=== PATIENT | female | born 1975 | race Caucasian/White ===

== ENCOUNTER → 2017-11-13 13:32 | Outpatient (CLI) | payer OTHER, SELFPAY ==
[2017-11-21 12:06] LABS: HPV Reflexed? NOT INDICATED
== END ==
PROVIDERS: Family Provider Family Medicine; PCP Family Medicine; Visit Provider Obstetrics & Gynecology
DX: Z12.4 Encounter for screening for malignant neoplasm of cervix (principal)
CPT/HCPCS: 88175; G0145

== ENCOUNTER → 2018-12-01 16:11 | Outpatient (CLI) | payer BC, SELFPAY | PROVIDERS: Visit Provider Obstetrics & Gynecology | DX: Z12.4 Encounter for screening for malignant neoplasm of cervix (principal) ==

== ENCOUNTER → 2020-01-10 | Outpatient (CLI) | payer BC, SELFPAY ==
[2020-01-14 15:26] LABS: HPV Reflexed? NOT INDICATED
== END | disposition home or self-care (01) ==
LOC: WOBLAB 11:36
PROVIDERS: Visit Provider Student in an Organized Health Care Education/Training Program
DX: Z12.4 Encounter for screening for malignant neoplasm of cervix (principal)
CPT/HCPCS: 88175; G0145

== ENCOUNTER 2021-05-18 10:28 | Outpatient (CLI) | payer BC, SELFPAY ==
--- NOTE | 2021-05-18 10:32 | BI_ITS ---
MAMMOGRAPHY - BILATERAL SCREENING REASON FOR EXAM: Female, 45 years old. Routine annual screening examination. PERTINENT HISTORY: Non-contributory. TECHNIQUE: Digital bilateral breast moises (3D mammographic acquisition) in the CC and MLO projections. 2-D mediolateral oblique (MLO) and craniocaudad (CC) views of both breasts were obtained. CAD: Full Field Digital Mammography with Computer Added Detection was performed. COMPARISON: None. Baseline examination. FINDINGS: Breast Composition: The breasts are extremely dense, which lowers the sensitivity of mammography. There are no dominant masses or suspicious calcifications. No other significant abnormalities are identified. BI/SCRN MAMM (CAD)W/MOISES BILAT IMPRESSION: Negative screening mammogram. Yearly followup mammogram recommended. (A) ASSESSMENT CATEGORY: BIRADS Category 1: Negative. A letter regarding these results will be sent to the patient by the facility within 30 days. Approximately 10% of breast cancers are not detected by mammography. A normal mammogram should not delay biopsy of a clinically suspicious abnormality. [id number] Electronically Signed: Srinath Pitt MD at 11:12 EST ,
== END 2021-05-18 23:59 | disposition home or self-care (01) ==
LOC: OPBI 10:31
PROVIDERS: Visit Provider Student in an Organized Health Care Education/Training Program
DX: Z12.31 Encounter for screening mammogram for malignant neoplasm of breast (principal)
CPT/HCPCS: 77063; 77067

== ENCOUNTER → 2022-02-18 | Outpatient (CLI) | payer BC, SELFPAY ==
[2022-02-18 13:11] LABS: CPK Total, Creatine Kinase 83 U/L (26-192)
[2022-02-19 11:20] LABS: Myoglobin, Serum 24 ng/mL (25-58)
== END | disposition home or self-care (01) ==
PROVIDERS: PCP Family Medicine; Referring Provider Internal Medicine Pulmonary Disease; Visit Provider Internal Medicine Pulmonary Disease
DX: J45.991 Cough variant asthma (principal)
CPT/HCPCS: 36415; 82550; 83874

== ENCOUNTER → 2022-05-31 | Outpatient (CLI) | payer BC, SELFPAY ==
[2022-06-10 14:30] LABS: HPV APTIMA, High Risk Negative (Negative)
== END | disposition home or self-care (01) ==
LOC: LABSPEC 13:00
PROVIDERS: PCP Family Medicine; Visit Provider Student in an Organized Health Care Education/Training Program
DX: Z12.4 Encounter for screening for malignant neoplasm of cervix (principal)
CPT/HCPCS: 87624; 88175; G0145

== ENCOUNTER → 2022-07-23 | Outpatient (CLI) | payer BC, SELFPAY ==
--- NOTE | 2022-07-23 12:18 | BI_ITS ---
MAMMOGRAPHY - BILATERAL SCREENING REASON FOR EXAM: Female, 47 years old. Routine annual screening examination. PERTINENT HISTORY: Non-contributory. TECHNIQUE: Digital bilateral breast moises (3D mammographic acquisition) in the CC and MLO projections. 2-D mediolateral oblique (MLO) and craniocaudad (CC) views of both breasts were obtained. CAD: Full Field Digital Mammography with Computer Added Detection was performed. COMPARISON: Comparison is made with prior study of May 18, 2021. FINDINGS: Breast Composition: The breasts are extremely dense, which lowers the sensitivity of mammography. There are no dominant masses or suspicious calcifications. Stable small benign-appearing bilateral axillary lymph nodes. No other significant abnormalities are identified. There has been no significant change since the prior study. BI/SCRN MAMM (CAD)W/MOISES BILAT IMPRESSION: Stable bilateral screening mammogram. Yearly follow-up mammogram recommended. (A) ASSESSMENT CATEGORY: BIRADS Category 2: Benign. A letter regarding these results will be sent to the patient by the facility within 30 days. Approximately 10% of breast cancers are not detected by mammography. A normal mammogram should not delay biopsy of a clinically suspicious abnormality. [id number] Electronically Signed: Srinath Pitt MD at 13:35 EDT ,
== END | disposition home or self-care (01) ==
LOC: OPBI 12:17
PROVIDERS: PCP Family Medicine; Referring Provider Student in an Organized Health Care Education/Training Program; Visit Provider Student in an Organized Health Care Education/Training Program
DX: Z12.31 Encounter for screening mammogram for malignant neoplasm of breast (principal)
CPT/HCPCS: 77063; 77067

== ENCOUNTER → 2022-08-07 | Outpatient (CLI) | payer BC, SELFPAY ==
[2022-08-07 10:38] LABS: Erythrocyte Sedimentation Rate 3 mm/hr (0-30)
[2022-08-07 10:40] LABS: Absolute Lymphocyte Count 1.52 X10^3/uL (0.83-4.51); Absolute Neutrophil Count 4.2 X10^3/uL (2.0-7.7); Basophil# 0.05 X10^3/uL; Basophil% 0.8 % (0-1); Eosinophil# 0.08 X10^3/uL; Eosinophils% 1.3 % (0-5); Hematocrit 43.3 % (37-47); Hemoglobin 13.8 g/dL (12.0-15.0); Lymphocyte # 1.52 X10^3/ul (0.83-4.51); Lymphocyte % 24.3 % (19-41); Mean Corp Hgb Conc 31.9 g/dL (32-36); Mean Platelet Vol. 9.4 fl (6.2-12.0); Monocyte% 6.4 % (0-10); NRBC Flagged by Analyzer 0 % (0-5); Neutrophil # 4.19 X10^3/uL (2.7-7.7); Neutrophil % 66.9 % (47-70); Platelet Count 395 K/mm3 (150-450); RBC Distribution Width CV 14.3 % (11.6-14.6); RBC Distribution Width SD 47.9 fl (35.1-43.9); Red Blood Count 4.76 M/mm3 (4.2-5.4); White Blood Count 6.3 K/mm3 (4.4-11.0)
[2022-08-07 10:52] LABS: ALB/GLOB Ratio 1.2 RATIO (0.9-2.4); AST(SGOT) 18 U/L (15-37); Alanine Aminotransfer ALT/SGPT 27 U/L (13-56); Albumin, Serum 3.7 g/dL (3.2-5.0); Alkaline Phosphatase 103 U/L (45-117); Anion Gap 6 (5-15); BUN 10 mg/dL (7-18); BUN/Creat Ratio 11.5 RATIO (10-20); CRP 5.06 mg/L (0.0-3.0); Calcium,Total 9.2 mg/dL (8.5-10.1); Chloride 106 mmol/L (98-107); Creatinine, Serum 0.87 mg/dL (0.55-1.02); EST Glomerular Filtration Rate 75 mL/min (>60); Est Glom Filt Rate - Afr Amer 90 mL/min (>60); Globulin 3.2 g/dL (2.2-4.2); Glucose 87 mg/dL (74-106); Potassium 4.1 mmol/L (3.5-5.1); Protein, Total 6.9 g/dL (6.4-8.2); Sodium Level 139 mmol/L (136-145)
[2022-08-08 14:09] LABS: Anti-Centromere B Ab <0.2 AI (0.0-0.9); Anti-Chromatin <0.2 AI (0.0-0.9); Anti-Jo <0.2 AI (0.0-0.9); Anti-Scleroderma-70 AB <0.2 AI (0.0-0.9); Anti-dsDNA Ab 2 IU/mL (0-9); RNP Ab <0.2 AI (0.0-0.9); SJOGREN'S Anti-SS-A test < 0.2 AI (0.0-0.9); SJOGREN'S Anti-SS-B test < 0.2 AI (0.0-0.9); Smith Ab <0.2 AI (0.0-0.9)
== END | disposition home or self-care (01) ==
PROVIDERS: PCP Family Medicine; Referring Provider Nurse Practitioner Adult Health; Visit Provider Nurse Practitioner Adult Health
DX: R19.8 Other specified symptoms and signs involving the digestive system and abdomen (principal)
CPT/HCPCS: 36415; 80053; 85025; 85652; 86140; 86225; 86235

== ENCOUNTER 2022-10-31 06:59 | Day surgery (SDC) | payer BC, SELFPAY ==
[2022-10-31] VITALS (7 sets, daily range): BP systolic 109–124; BP diastolic 71–92; PULSE 64–80; RESP 16–18; TEMP 36.3–36.4; O2SAT 97–99; BMI 29.5
--- NOTE | 2022-10-31 | COLBX_PTH ---
PATIENT: TANVI SANCHEZ LOC: [facility] U#:[id number] AGE/SX: 47/F ROOM: RE10/31/[address]: Dr. Rocky Monroe DO : 1975 BED: DIS: 10/31/2022 SPEC #: [id number] RECD: 10/31/22 12:21 STATUS: JOSE LUIS GIOVANI #: [id number] ALEX: 10/31/22 00:[address]: Rocky Monroe DEPT: SURGICAL PATHOLOGY RECD BY: Modesto Cespedes ENTERED: 10/31/22 12:22 SP TYPE: COLON BX OTHR DR: Dr. Jose Cespedes MD Tissues: Ileum, NOS Procedures: Surgery Specimen Level IV HEADER OPERATION: Colonoscopy (MAC) PRE-OP DIAGNOSIS: Anal discharge TISSUE SUBMITTED: Terminal ileum biopsy MICROSCOPIC DIAGNOSIS Terminal ileum, biopsy: Focal acute ileitis. AM:guy 11/01/2022 MICROSCOPIC DESCRIPTION Slides are reviewed. GROSS DESCRIPTION Received in fixative is one container labeled with the patient's name and designated terminal ileum biopsy. The specimen consists of two irregular fragments of light ansari soft tissue that in aggregate measure 0.7 x 0.5 x 0.1 cm. The specimen is totally submitted in one cassette. / AM:guy 10/31/2022 TC:2 CPT: 78568
--- NOTE | 2022-10-31 07:21 | PCM.HP.BLA ---
History and Physical Date of Admission: 10/31/22 TANVI SANCHEZ, is a 47 F who presents to the office today to establish with Gastroenterology for anal discharge and need for screening colonoscopy. She has an intermittent clear discharge from the anus, malodorous, maybe slightly itchy, started 2 yrs ago. Temporarily better after taking antibiotics. No abd/rectal/pelvic pain. Had large perineal tear during of her son 17 yrs ago. Notes she sometimes has to apply pressure to perineum or in vagina to evacuate stool from the rectum. No issues with diarrhea or constipation. Only rare tiny bit of bright red blood after large BM. No melena. No prior colonoscopy, due for her first screening colonoscopy. No nausea, vomiting, dysphagia. Rare heartburn. ROS Const Constitutional: Positive for fatigue and headache(s) ENT ENT: Positive for headache(s); No difficulty swallowing Gastro GI: Positive for heartburn; No abdominal pain, belching, bloating, change in bowel habits, change in stool character, coffee ground emesis, constipation, cramping, diarrhea, difficulty swallowing, feeling full early, excessive flatus, incontinent of stools, Vomiting blood/hematemesis, Blood in stool, loose stools, Black,tarry stools, nausea/dyspepsia, pain with swallowing, vomiting or other Musc Musculoskeletal: Positive for joint pain and muscle weakness Skin Skin: No yellowing of the eye or itchy eyes Neuro Neurology: Positive for headache(s) Psych Psychiatric: No anxiety and No depression Endo Endocrine: Positive for fatigue Aller/Imm Allergy/Immunologic: No itchy eyes Judson/Lymp Hematologic/Lymphatic: No easy bleeding or easy bruising Exam Const General: cooperative, healthy appearing and comfortable Orientation: alert, awake and oriented x3 Quality Reporting Tobacco Screening ([facility] 138) Smoking Status: Never smoker Assessment and Plan Assessment and Plan (1) Anal discharge: Status: Chronic Plan: Likely has rectocele Pelvic floor therapist referral ?etiology for the clear discharge Screening colonoscopy Orders: Orders Comprehensive Metabolic Profil Today R19.8 - Other specified symptoms and signs involving the digestive system and abdomen CRP Today R19.8 - Other specified symptoms and signs involving the digestive system and abdomen CBC W/Diff, Automated Today R19.8 - Other specified symptoms and signs involving the digestive system and abdomen Erythrocyte Sed Rate Today R19.8 - Other specified symptoms and signs involving the digestive system and abdomen RABIA Comprehensive Panel Today R19.8 - Other specified symptoms and signs involving the digestive system and abdomen Miscellaneous Lab Procedure Today R19.8 - Other specified symptoms and signs involving the digestive system and abdomen I have examined the patient and the H&P has been reviewed. There are no clinical changes since date of exam.
[2022-10-31] MEDS: Lactated Ringers 1,000 ML 15 ML IV (07:23)
[2022-10-31 07:27] LABS: Internal QC Validated? YES +Cl - CLEAR BKGD; Pregnancy, Urine Negative Negative
--- NOTE | 2022-10-31 08:07 | OP.COLON_ITS ---
Patient Name: Kina Monique Procedure Date: 10/31/2022 7:27 AM Date of : 1975 Age: 47 Procedure: Colonoscopy Indications: Screening for colorectal malignant neoplasm Providers: Rocky Monroe DO Medicines: Monitored Anesthesia Care Patient Profile: This is a 47 year old female. Refer to note in patient chart for documentation of history and physical. Last Colonoscopy: none. The patient's first colonoscopy is today. Complications: No immediate complications. Procedure: Pre-Anesthesia Assessment: - Prior to the procedure, a History and Physical was performed, and patient medications and allergies were reviewed. The patient is competent. The risks and benefits of the procedure and the sedation options and risks were discussed with the patient. All questions were answered and informed consent was obtained. Patient identification and proposed procedure were verified by the physician in the pre-procedure area. Mental Status Examination: alert and oriented. Airway Examination: normal oropharyngeal airway and neck mobility. Respiratory Examination: clear to auscultation. CV Examination: normal. Prophylactic Antibiotics: The patient does not require prophylactic antibiotics. Prior Anticoagulants: The patient has taken no anticoagulant or antiplatelet agents. ASA Grade Assessment: II - A patient with mild systemic disease. After reviewing the risks and benefits, the patient was deemed in satisfactory condition to undergo the procedure. The anesthesia plan was to use moderate sedation / analgesia (conscious sedation). Immediately prior to administration of medications, the patient was re-assessed for adequacy to receive sedatives. The heart rate, respiratory rate, oxygen saturations, blood pressure, adequacy of pulmonary ventilation, and response to care were monitored throughout the procedure. The physical status of the patient was re-assessed after the procedure. After I obtained informed consent, the scope was passed under direct vision. Throughout the procedure, the patient's blood pressure, pulse, and oxygen saturations were monitored continuously. The Colonoscope was introduced through the anus and advanced to the terminal ileum. The colonoscopy was performed without difficulty. The patient tolerated the procedure well. The quality of the bowel preparation was good. The terminal ileum, ileocecal valve, appendiceal orifice, and rectum were photographed. Scope In: 7:40:05 AM Scope Withdrawal Time 0 hours 13 minutes 19 seconds Scope Out: 7:57:39 AM Total Procedure Duration Time 0 hours 17 minutes 34 seconds Findings: The perianal and digital rectal examinations were normal. Non-bleeding internal hemorrhoids were found during retroflexion. The hemorrhoids were Grade II (internal hemorrhoids that prolapse but reduce spontaneously) The exam was otherwise normal throughout the examined colon. Two small-mouthed diverticula were found in the recto-sigmoid colon. Patchy mild inflammation characterized by erosions and erythema was found in the terminal ileum. Biopsies were taken with a cold forceps for histology. Verification of patient identification for the specimen was done. Estimated blood loss was minimal. Impression: - Non-bleeding internal hemorrhoids with a small anal fissure - Diverticulosis in the recto-sigmoid colon. - Mild inflammation was found in the ileum secondary to ileitis. Biopsied. Recommendation: - Discharge patient to home. - Resume previous diet. - Continue present medications. - Await pathology results. - Repeat colonoscopy in 10 years for screening purposes. Procedure Code(s): --- Professional --- 42949, Colonoscopy, flexible; with biopsy, single or multiple CPT copyright 2021 [employer]. All rights reserved. The codes documented in this report are preliminary and upon needle maker review may be revised to meet current compliance requirements. Rocky Monroe DO 10/31/2022 8:06:51 AM This report has been signed electronically. Number of Addenda: 0 Note Initiated On: 10/31/2022 7:27 AM
--- NOTE | 2022-10-31 08:08 | OP.CCLET_ITS ---
10/31/2022 Jose Cespedes Re : Colonoscopy procedure for Kina Monique Dear Coy This procedure was performed on October. My impressions and recommendations are as follows: Impressions : - Non-bleeding internal hemorrhoids with a small anal fissure - Diverticulosis in the recto-sigmoid colon. - Mild inflammation was found in the ileum secondary to ileitis. Biopsied. Recommendations : - Discharge patient to home. - Resume previous diet. - Continue present medications. - Await pathology results. - Repeat colonoscopy in 10 years for screening purposes. My findings are described in the full procedure note, which is enclosed. If I can be of further assistance, please feel free to contact me at . Sincerely, Rocky Monroe, 10/31/2022 8:06:51 AM This report has been signed electronically.
== END 2022-10-31 08:55 | disposition home or self-care (01) ==
LOC: EN 07:00 → AC 07:01
PROVIDERS: Anesthesiology; PCP Family Medicine; Referring Provider Family Medicine; Visit Provider Internal Medicine Gastroenterology
PROC: 0DJD8ZZ Inspection of Lower Intestinal Tract, Via Natural or Artificial Opening Endoscopic (ICD-10-PCS; CPT 45378; principal; 2022-10-31 07:55)
DX: Z12.11 Encounter for screening for malignant neoplasm of colon (principal); K52.9 Noninfective gastroenteritis and colitis, unspecified; K64.1 Second degree hemorrhoids; K57.30 Diverticulosis of large intestine without perforation or abscess without bleeding; K60.2 Anal fissure, unspecified; R19.8 Other specified symptoms and signs involving the digestive system and abdomen; Z79.890 Hormone replacement therapy; J45.909 Unspecified asthma, uncomplicated; K21.9 Gastro-esophageal reflux disease without esophagitis; E03.9 Hypothyroidism, unspecified; Z79.51 Long term (current) use of inhaled steroids
CPT/HCPCS: 45380; 81025; 88305; J7120; J2405